=== PATIENT | female | born 1965 | race Caucasian/White ===

== ENCOUNTER 2017-12-03 18:56 | Emergency (ER) | payer OTHER ==
[2016-08-09 20:43] VITALS: BP 158/96
[2017-12-03] MEDS ORDERED: fentaNYL CITRATE/PF 100 MCG/ 2ML AMP IVP ONE ×2 (19:00→20:00)
[2017-12-03] MEDS ORDERED: fentaNYL CITRATE/PF 100 MCG/ 2ML AMP ONE (19:06)
--- NOTE | 2017-12-03 20:07 | ED Physician Documentation ---
Fall - HISTORIAN Historian: patient, spouse - HPI Chief Complaint: Fall Additional Information: ankle twist fall w/pain deformity lt elbow w/sig pain. denies head neck back pain Onset: today (1840) Where: home Context: lost balance r: moderate, severe Associated Symptoms:: no loss of consciousness Location of Pain/Injury: denies: head, neck, face, upper back, mid back Injury to Right Extremity: none Injury to Left Extremity: elbow - ROS CONST: no problems NEURO: denies: dizziness, anxiety, depression MS/SKIN/LYMPH: denies: weakness, neck pain, back pain, ankle swelling EYES/ENT: none. denies: problems with vision CVS/RESP: denies: chest pain, shortness of breath GI/: denies: nausea, vomiting - PAST HX Past History: diabetes Type 1 (htn) Allergies/Adverse Reactions: Allergies Allergy/AdvReac Type Severity Reaction Status Date / Time Penicillins Allergy Severe Anaphylaxis Verified 12/03/17 20:07 Sulfa (Sulfonamide Allergy Intermediate Hives Verified 12/03/17 20:07 Antibiotics) erythromycin base AdvReac Nausea/Vomi Verified 12/03/17 20:07 ting Home Medications: Ambulatory Orders Medication Instructions Recorded Levocetirizine Dihydrochloride 5 mg PO D 08/10/16 [Xyzal] Levothyroxine Sodium [Synthroid] 150 mcg PO D 08/10/16 Losartan Potassium [Cozaar] 50 mg PO D 08/10/16 Metformin HCl [Glucophage] 500 mg PO D 08/10/16 Sertraline HCl [Zoloft] 100 mg PO D 08/10/16 Venlafaxine HCl [Effexor] 37.5 mg PO D 08/10/16 - SOCIAL HX Smoking History: non-smoker Alcohol Use: none Drug Use: none - FAMILY HX Family History: no significant history - VITAL SIGNS Vital Signs: Vital Signs Temp Pulse Resp BP Pulse Ox 158/96 08/10/16 00:20 - REVIEWED ASSESSMENTS Nursing Assessment Reviewed: Yes Vitals Reviewed: Yes ED Results Lab/Radiology - Radiology Radiology Impressions: COMMINUTED FRACTURE LT ELBOW WITH DISLOCATION - NEUROVASCULAR INTACT POST SPLINT W/ SLING - Orders Orders: ED Orders Category Date Time Status ELBOW 2 VIEWS [RAD] Stat Exams 12/03/17 19:00 Ordered fentaNYL CITRATE/PF [Duragesic] Med 12/03/17 19:06 Discontinued 100 mcg .ROUTE .STK-MED ONE fentaNYL CITRATE/PF [Duragesic] Med 12/03/17 20:00 Discontinued 100 mcg IVP NOW ONE fentaNYL CITRATE/PF [Duragesic] Med 12/03/17 19:00 Discontinued 50 mcg IVP NOW ONE Fall Physical Exam - Physical Exam General Appearance: moderate distress Head: non-tender, no swelling Neck: non-tender Eye: CYRUS, EOMI ENT: nml external inspection Resp/CVS: chest non-tender, breath sounds nml, no resp. distress, heart sounds nml Abdomen: soft, non-tender Neuro: oriented x3, sensation nml, motor nml, mood/affect nml Skin: color nml. No: cyanosis, diaphoresis, pallor, ecchymosis Back: normal inspection, no CVA tenderness Extremities: other (pain deformity lt elbow) Joint: Nml gait/weight bearing, limited ROM - Burton Coma Score Eyes Open: Spontaneous Speech: Oriented Motor: Obeys Commands Discharge Clincal Impression: COMMINUTED FRACTURE WITH DISLOCATION RAA, LT ARM, ASSOCIATED DISLOCATION Referrals: Jeanie Romano FNP [Primary Care Provider] - 2 Days Condition: Fair Disposition: XFER SHT-TRM HOSP Decision to Admit: [id number] Decision Time: 21:56
[2017-12-03] MEDS ORDERED: HYDROmorphone HCL/PF 2 MG/ML DISP.SYRIN IVP ONE (21:16)
--- NOTE | 2017-12-04 07:08 | Diagnostic Imaging Report ---
SURI APPLE [facility] [id number] [facility]ly [facility] [address] [address] Report Submission Date: Dec 03, 2017 8:36:16 PM GAS DISPATCHER Patient Study Name: STEPHANE CUTLER Date: Dec 03, 2017 8:05:11 PM GAS DISPATCHER Modality Type: CR Gender: F Description: UPPER EXTREMITY : 63 Institution: [facility] Physician: SURI APPLE Left elbow 3 views Date of Exam: December 03, 2017. History: FALL, DEFORMITY, PAIN, PT UNABLE TO STRAIGHTEN ARM FOR AP VIEW (Hx) Findings: No comparison studies are provided. Fractures of the proximal radius and ulna are present. There appears to be dislocation of the proximal radius and resorption of the radial head. There is a fracture through the proximal shaft of the ulna extending through the olecranon. Impression: Fractures of the proximal radius and ulna with dislocation of the proximal radius. Electronically signed on Dec 03, 2017 8:36:16 PM GAS DISPATCHER by: Emmy HERRERA
== END 2017-12-03 21:56 | disposition short-term general hospital (02) ==
LOC: ED 18:56
DX: S52.182A Other fracture of upper end of left radius, initial encounter for closed fracture (principal); S52.002A Unspecified fracture of upper end of left ulna, initial encounter for closed fracture; W19.XXXA Unspecified fall, initial encounter; Y92.9 Unspecified place or not applicable; Y93.9 Activity, unspecified
CPT/HCPCS: 73070; 96374; 96375; 96376; 99283; J1170; J3010; S1016